=== PATIENT | male | born 1940 | race Caucasian/White ===

== ENCOUNTER 2017-10-13 05:41 | Outpatient (CLI) | payer MEDICARE ==
[~2017-10-13] VITALS: Ht 177.8 cm; Wt 104.3 kg
== END 2017-10-13 12:31 ==
LOC: PREOP 05:41
PROVIDERS: ATTEND Otolaryngology Otolaryngology/Facial Plastic Surgery
DX: Z01.818 Encounter for other preprocedural examination (principal); J32.8 Other chronic sinusitis; J33.9 Nasal polyp, unspecified

== ENCOUNTER 2017-10-16 07:23 | Day surgery (SDC) | payer MEDICARE, OTHER ==
[~2017-10-16] VITALS: Ht 177.8 cm; Wt 104.3 kg
--- OUTSIDE RECORDS SUMMARY | 2017-10-16 07:28 | XMS REPORT ---
Author Author Olga Cárdenas [facility] Address [address] [place], [place] [id number] Care Team Providers Care Dock Operator Name Role Phone RayshawnannaleeOlga rodriguez PCP [phone] Olga Cárdenas PreferredProvider [phone] Allergies and Adverse Reactions Name Reaction Notes Tape NO KNOWN DRUG ALLERGIES Plan of Treatment Not available. Medications Active Name Start Date Estimated Completion Date SIG Comments no med Name Start Date Expiration Date SIG Comments Zithromax 250 mg oral tablet 03/11/2017 03/16/2017 take 2 tablets (500 mg) by oral route once daily for 1 day then 1 tablet (250 mg) by oral route once daily for 4 days Discontinued Name Start Date Discontinued Date SIG Comments diphenhydramine HCl oral tablet 25 mg 12/13/2014 12/01/2016 take 1 tablet (25 mg) by oral route every 6 hours as needed for itching triamcinolone acetonide topical cream 0.1 % 12/13/2014 12/01/2016 apply a thin layer to the affected area(s) by topical route 2 times per day until rash resolved loratadine oral tablet 10 mg 12/13/2014 12/01/2016 take 1 tablet (10 mg) by oral route once daily for 14 days or until rash resolves Problem List Description Status Onset Hyperlipidemia Active stroke Active Vital Signs Date Time BP-Sys(mm[Hg] BP-Ligia(mm[Hg]) HR(bpm) RR(rpm) Temp WT HT HC BMI BSA BMI Percentile O2 Sat(%) 03/11/2017 9:09:00 AM 146 mmHg 82 mmHg 82 bpm 18 rpm 97.6 F 226.125 lbs 70 in 32.45 kg/m2 2.25 m2 96 % 02/18/2017 1:03:00 PM 128 mmHg 78 mmHg 72 bpm 18 rpm 97.6 F 234 lbs 70 in 33.5752 kg/m 2.2896 m 98 % 02/11/2017 2:10:00 PM 138 mmHg 84 mmHg 86 bpm 20 rpm 97.6 F 233.312 lbs 70 in 33.48 kg/m2 2.29 m2 98 % 12/13/2014 2:57:00 PM 130 mmHg 80 mmHg 89 bpm 20 rpm 97.3 F 235 lbs 70 in 33.7186 kg/m 2.2945 m 98 % 09/28/2014 4:23:00 PM 145 mmHg 85 mmHg 79 bpm 18 rpm 97.5 F 234 lbs 70 in 33.58 kg/m2 2.29 m2 98 % 07/28/2012 1:45:00 PM 138 mmHg 80 mmHg 80 bpm 18 rpm 97.2 F 228 lbs 70 in 32.7143 kg/m 2.26 m 99 % Social History Name Description Comments Alcohol Never Caffeine Current every day Tobacco Former smoker quit 1998 History of Procedures Date Ordered Description Order Status 03/11/2017 12:00 AM THER/PROPH/DIAG INJ SC/IM Reviewed 03/11/2017 12:00 AM Depo-Medrol 40mg Injection Reviewed 03/11/2017 12:00 AM Decadron 4mg Injection Reviewed 02/11/2017 12:00 AM REMOVE IMPACTED EAR WAX UNI Reviewed 02/18/2017 12:00 AM TRIM NAIL(S) ANY NUMBER Reviewed 07/28/2012 12:00 AM DESTRUCT PREMALG LESION Reviewed 09/21/2014 12:00 AM INFLUENZA VAC 4 VALENT PRSRV FREE 3 YRS PLUS IM Reviewed 09/28/2014 12:00 AM METABOLIC PANEL TOTAL CA Reviewed 09/28/2014 12:00 AM COMPLETE CBC W/AUTO DIFF WBC Reviewed 09/28/2014 12:00 AM LIPID PANEL Reviewed 12/13/2014 12:00 AM THER/PROPH/DIAG INJ SC/IM Reviewed 12/13/2014 12:00 AM Depo-Medrol, Per 80 Mg [facility]#5465-7517-13 Reviewed 12/13/2014 12:00 AM Decadron, Per 1 Mg [facility]# [address]-50 Reviewed Results Summary Not available. History Of Immunizations Name Date Admin Mfg Name Mfg Code Trade Name Lot# Route Inj Vis Given Vis Pub CVX Influenza 09/21/2014 Not Entered NE Not Entered [id number] Not Entered Not Entered 09/21/2014 07/11/2014 141 History of Past Illness Name Date of Onset Comments Hyperlipidemia stroke Common Wart Jul 28 2012 1:50PM Flu Vaccine Sep 25 2014 10:04AM Hypertension Sep 28 2014 4:30PM Hyperlipidemia Sep 28 2014 4:30PM stroke Sep 28 2014 4:30PM Allergic dermatitis Dec 13 2014 2:59PM Overgrown toenails Feb 18 2017 1:09PM Cough Mar 11 2017 9:11AM Reactive airway disease that is not asthma Mar 11 2017 9:11AM Purulent rhinitis Mar 11 2017 9:11AM Bilateral impacted cerumen Feb 11 2017 2:11PM Payers Insurance Name Company Name Plan Name Plan Number Policy Number Policy Group Number Start Date Medicare Part A Medicare Part A [id number] [facility] refunds [id number] Wednesday, 2000 Mail Handlers Benefit Becki Mail Handlers Benefit Becki [id number] Thursday, 2014 Medicare Part A Medicare - Lab/Xray [id number] N/A Medicare Part B Medicare Of [place] [id number] N/A History of Encounters Visit Date Visit Type Provider 03/11/2017 Office visit Olga Cárdenas POWDER MIXER 02/18/2017 Office visit Olga Cárdenas POWDER MIXER 02/11/2017 Office visit Olga Cárdenas POWDER MIXER 12/13/2014 Office visit 12/13/2014 Office visit Allison Ambrocio POWDER MIXER 09/28/2014 Office visit Rosa M Maguire MD 09/21/2014 Nurse visit Rosa M Maguire MD 07/28/2012 Procedures Fernando Marcos MD 11/25/2010 [facility] Pita May MD
--- OUTSIDE RECORDS SUMMARY | 2017-10-16 07:28 | XMS REPORT ---
Author Author Olga Cárdenas [facility] Address [address] [place], [place] [address] Care Team Providers Care It Data Architect Name Role Phone RayshawnrishiOlga magallon PCP [phone] Olga Cárdenas PreferredProvider [phone] Allergies and Adverse Reactions Name Reaction Notes Tape NO KNOWN DRUG ALLERGIES Plan of Treatment Not available. Medications Active Name Start Date Estimated Completion Date SIG Comments no med Namenda 10 mg oral tablet 06/11/2017 07/11/2017 take 1 tablet (10 mg) by oral route daily Name Start Date Expiration Date SIG Comments [...] HC BMI BSA BMI Percentile O2 Sat(%) 06/11/2017 3:58:00 PM 116 mmHg 78 mmHg 78 bpm 18 rpm 97.6 F 229.375 lbs 70 in 32.91 kg/m2 2.27 m2 96 % 03/11/2017 9:09:00 AM 146 mmHg 82 mmHg 82 bpm 18 rpm 97.6 F 226.125 lbs 70 in 32.4452 kg/m 2.2507 m 96 % 02/18/2017 1:03:00 PM 128 mmHg 78 mmHg 72 bpm 18 rpm 97.6 F 234 lbs 70 in 33.58 kg/m2 2.29 m2 98 % 02/11/2017 2:10:00 PM 138 mmHg 84 mmHg 86 bpm 20 rpm 97.6 F 233.312 lbs 70 in 33.4765 kg/m 2.2862 m 98 % 12/13/2014 2:57:00 PM 130 mmHg 80 mmHg 89 bpm 20 rpm 97.3 F 235 lbs 70 in 33.72 kg/m2 2.29 m2 98 % 09/28/2014 4:23:00 PM 145 mmHg 85 mmHg 79 bpm 18 rpm 97.5 F 234 lbs 70 in 33.5752 kg/m 2.2896 m 98 % 07/28/2012 1:45:00 PM 138 mmHg 80 mmHg 80 bpm 18 rpm 97.2 F 228 lbs 70 in 32.71 kg/m2 2.26 m2 99 % Social History Name Description Comments Alcohol Never Caffeine Current every day Tobacco Former smoker quit 1999 History of Procedures Date Ordered Description Order Status 03/11/2017 12:00 AM THER/PROPH/DIAG INJ SC/IM Reviewed 03/11/2017 12:00 AM Depo-Medrol 40mg Injection Reviewed 03/11/2017 12:00 AM Decadron 4mg Injection Reviewed 02/11/2017 12:00 AM REMOVE IMPACTED EAR WAX UNI Reviewed 02/18/2017 12:00 AM TRIM NAIL(S) ANY NUMBER Reviewed 06/17/2017 12:00 AM MRI BRAIN STEM W/DYE Reviewed 06/17/2017 12:00 AM MR ANGIOGRAPHY HEAD W/DYE Reviewed 06/11/2017 12:00 AM COMPLETE CBC W/AUTO DIFF WBC Reviewed 06/11/2017 12:00 AM COMPREHEN METABOLIC PANEL Reviewed 06/11/2017 12:00 AM ASSAY THYROID STIM HORMONE Reviewed 06/11/2017 12:00 AM ASSAY OF FREE THYROXINE Reviewed 06/11/2017 12:[address] HEAD/BRAIN W/DYE Reviewed 06/11/2017 12:00 AM ASSAY OF MAGNESIUM Reviewed 06/11/2017 12:00 AM ROUTINE VENIPUNCTURE Reviewed 06/11/2017 12:00 AM ASSAY TRIIODOTHYRONINE (T3) Reviewed 07/28/2012 12:00 AM DESTRUCT PREMALG LESION Reviewed 09/21/2014 12:00 AM INFLUENZA VAC 4 VALENT PRSRV FREE 3 YRS PLUS IM Reviewed 09/28/2014 12:00 AM METABOLIC PANEL TOTAL CA Reviewed 09/28/2014 12:00 AM COMPLETE CBC W/AUTO DIFF WBC Reviewed 09/28/2014 12:00 AM LIPID PANEL Reviewed 12/13/2014 12:00 AM THER/PROPH/DIAG INJ SC/IM Reviewed 12/13/2014 12:00 AM Depo-Medrol, Per 80 Mg [facility]#1531-0188-04 Reviewed 12/13/2014 12:00 AM Decadron, Per 1 Mg [facility]# [address]-59 Reviewed Results Summary Date and Description Results 06/11/2017 5:43 PM T3 TOTAL 95.0 ng/dLFREE T4 0.99 TSH 1.790 uIU/mLMAGNESIUM 2.10 mg/dLGLUCOSE 142.0 mg/dLSODIUM 138.0 mmol/LPOTASSIUM 3.90 mmol/LCHLORIDE 103.0 mmol/LCO2 24.0 mmol/LBUN 16.0 mg/dLCREATININE 0.90 mg/dLSGOT/AST 15.0 IU/ LSGPT/ALT 12.0 IU/LALK PHOS 112.0 IU/LTOTAL PROTEIN 7.10 g/dLALBUMIN 3.90 g/ dLTOTAL BILI 0.60 mg/dLCALCIUM 9.0 mg/dLAGE 76 GFR NonAA 82 GFR AA 99 eGFR >60 mL/min/1.73meGFR AA* >60 WBC 8.8 RBC 4.60 HGB 14.70 g/dLHCT 43.50 %MCV 95.0 fLMCH 32.0 pgMCHC 33.80 g/dLRDW SD 46 RDW CV 13.20 %MPV 9.50 fLPLT 292 NRBC# 0.00 NRBC% 0.0 %NEUT 58.20 %%LYMP 30.10 %%MONO 8.20 %%EOS 2.70 %%BASO 0.60 %# NEUT 5.12 #LYMP 2.65 #MONO 0.72 #EOS 0.24 #BASO 0.05 MANUAL DIFF NOT IND History Of Immunizations Name Date Admin Mfg Name Mfg Code Trade Name Lot# Route Inj Vis Given Vis Pub CVX Influenza 09/21/2014 Not Entered NE Not Entered [email or web address] Not Entered Not Entered 09/21/2014 07/11/2014 141 [...] Bilateral impacted cerumen Feb 11 2017 2:11PM Fatigue, unspecified type Jun 11 2017 4:01PM Confusion Jun 11 2017 4:01PM Memory loss Jun 11 2017 4:01PM Unstable gait Jun 11 2017 4:01PM Unspecified fall, subsequent encounter Jun 11 2017 4:01PM Abnormal CT scan, head Jun 17 2017 3:52PM Acute confusion Jun 17 2017 3:52PM Amnesia memory loss Jun 17 2017 3:52PM Unstable gait Jun 17 2017 3:52PM Payers Insurance Name Company Name Plan Name Plan Number Policy Number Policy Group Number Start Date Medicare Part A Medicare Part A [id number] N/A [employer] Benefit Becki [employer] Hand[employer] Benefit Becki [id number] Thursday, 2014 [facility] refunds [id number] Wednesday, 2000 Medicare Part B Medicare Of [place] [id number] N/A Medicare Part A Medicare - Lab/Xray [id number] N/A History of Encounters Visit Date Visit Type Provider 06/11/2017 Office visit Olga Cárdenas PRESCHOOL TEACHER AIDE 03/11/2017 Office visit Olga Cárdenas PRESCHOOL TEACHER AIDE 02/18/2017 Office visit Olga Cárdenas PRESCHOOL TEACHER AIDE 02/11/2017 Office visit Olga Cárdenas PRESCHOOL TEACHER AIDE 12/13/2014 Office visit 12/13/2014 Office visit Allison Ambrocio PRESCHOOL TEACHER AIDE 09/28/2014 Office visit Rosa M Maguire MD 09/21/2014 Nurse visit Rosa M Maguire MD 07/28/2012 Procedures Fernando Marcos MD 11/25/2010 [facility] Reina May MD
--- OUTSIDE RECORDS SUMMARY | 2017-10-16 07:28 | XMS REPORT ---
Author Author Olga Cárdenas [facility] Address [address] [place], [place] [phone] Care Team Providers Care Staff Genetic Counselor Name Role Phone RayshawnannaleeOlga rodriguez PCP [phone] Olga Cárdenas PreferredProvider [phone] Allergies and Adverse Reactions Name Reaction Notes Tape NO KNOWN DRUG ALLERGIES Plan of Treatment Not available. Medications Active Name Start Date Estimated Completion Date SIG Comments no med Zithromax 250 mg oral tablet 03/11/2017 03/16/2017 [...] of Procedures Date Ordered Description Order Status 02/11/2017 12:00 AM REMOVE IMPACTED EAR WAX UNI Reviewed 02/18/2017 12:00 AM TRIM NAIL(S) ANY NUMBER Reviewed 03/11/2017 12:00 AM THER/PROPH/DIAG INJ SC/IM Reviewed 03/11/2017 12:00 AM Depo-Medrol 40mg Injection Reviewed 03/11/2017 12:00 AM Decadron 4mg Injection Reviewed 07/28/2012 12:00 AM DESTRUCT PREMALG LESION Reviewed 09/21/2014 12:00 AM INFLUENZA VAC 4 VALENT PRSRV FREE 3 YRS PLUS IM Reviewed 09/28/2014 12:00 AM METABOLIC PANEL TOTAL CA Reviewed 09/28/2014 12:00 AM COMPLETE CBC W/AUTO DIFF WBC Reviewed 09/28/2014 12:00 AM LIPID PANEL Reviewed 12/13/2014 12:00 AM THER/PROPH/DIAG INJ SC/IM Reviewed 12/13/2014 12:00 AM Depo-Medrol, Per 80 Mg [facility]#6844-6908-73 Reviewed 12/13/2014 12:00 AM Decadron, Per 1 Mg [facility]# [address]-41 Reviewed Results Summary Not available. History Of Immunizations Name Date Admin Mfg Name Mfg Code Trade Name Lot# Route Inj Vis Given Vis Pub CVX Influenza 09/21/2014 Not Entered NE Not Entered [id number] Not Entered Not Entered 09/21/2014 07/11/2014 141 [...] 9:11AM Purulent rhinitis Mar 11 2017 9:11AM Payers Insurance Name Company Name Plan Name Plan Number Policy Number Policy Group Number Start Date Medicare Part A Medicare Part A [id number] N/A [facility] refunds [id number] Wednesday, 2000 Mail Handlers Benefit Becki Mail Hand[employer] Benefit Becki [id number] Thursday, 2014 Medicare Part A Medicare - Lab/Xray [id number] N/A Medicare Part B Medicare Of [place] [id number] N/A History of Encounters Visit Date Visit Type Provider 03/11/2017 Office visit Olga Cárdenas CHILD NURSE 02/18/2017 Office visit Olga Cárdenas CHILD NURSE 02/11/2017 Office visit Olga Cárdenas CHILD NURSE 12/13/2014 Office visit 12/13/2014 Office visit Allison Ambrocio CHILD NURSE 09/28/2014 Office visit Rosa M Maguire MD 09/21/2014 Nurse visit Rosa M Maguire MD 07/28/2012 Procedures Fernando Marcos MD 11/25/2010 [facility] Pita May MD
--- OUTSIDE RECORDS SUMMARY | 2017-10-16 07:28 | XMS REPORT ---
Author Author Olga Cárdenas [facility] Address [address] [place], [place] [address] Care Team Providers Care Office Executive Name Role Phone RayshawnannaleeOlga rodriguez PCP [phone] Olga Cárdenas PreferredProvider [phone] Allergies and Adverse Reactions Name Reaction Notes [...] of Procedures Date Ordered Description Order Status 02/18/2017 12:00 AM TRIM NAIL(S) ANY NUMBER Reviewed 03/11/2017 12:00 AM THER/PROPH/DIAG INJ SC/IM Reviewed 03/11/2017 12:00 AM Depo-Medrol 40mg Injection Reviewed 03/11/2017 12:00 AM Decadron 4mg Injection Reviewed 02/11/2017 12:00 AM REMOVE IMPACTED EAR WAX UNI Reviewed 07/28/2012 12:00 AM DESTRUCT PREMALG LESION Reviewed 09/21/2014 12:00 AM INFLUENZA VAC 4 VALENT PRSRV FREE 3 YRS PLUS IM Reviewed 09/28/2014 12:00 AM METABOLIC PANEL TOTAL CA Reviewed 09/28/2014 12:00 AM COMPLETE CBC W/AUTO DIFF WBC Reviewed 09/28/2014 12:00 AM LIPID PANEL Reviewed 12/13/2014 12:00 AM THER/PROPH/DIAG INJ SC/IM Reviewed 12/13/2014 12:00 AM Depo-Medrol, Per 80 Mg [facility]#7010-2555-55 Reviewed 12/13/2014 12:00 AM Decadron, Per 1 Mg [facility]# [address]-36 Reviewed Results Summary Not available. History Of Immunizations Name Date Admin Mfg Name Mfg Code Trade Name Lot# Route Inj Vis Given Vis Pub CVX Influenza 09/21/2014 Not Entered NE Not Entered [id number] Not Entered Not Entered 09/21/2014 07/11/2014 141 [...] Date Medicare Part A Medicare Part A [id number] N/A [facility] refunds [id number] Wednesday, 2000 Mail Handlers Benefit Becki Mail Handlers Benefit Becki [id number] Thursday, 2014 Medicare Part A Medicare - Lab/Xray [id number] N/A Medicare Part B Medicare Of [place] [id number] N/A History of Encounters Visit Date Visit Type Provider 03/11/2017 Office visit Olga Cárdenas PHARMACY TECHNOLOGY INSTRUCTOR 02/18/2017 Office visit Olga Cárdenas PHARMACY TECHNOLOGY INSTRUCTOR 02/11/2017 Office visit Olga Cárdenas PHARMACY TECHNOLOGY INSTRUCTOR 12/13/2014 Office visit 12/13/2014 Office visit Allison Ambrocio PHARMACY TECHNOLOGY INSTRUCTOR 09/28/2014 Office visit Rosa M Maguire MD 09/21/2014 Nurse visit Rosa M Maguire MD 07/28/2012 Procedures Fernando Marcos MD 11/25/2010 [facility] Pita May MD
--- OUTSIDE RECORDS SUMMARY | 2017-10-16 07:29 | XMS REPORT ---
Author Author Olga Cárdenas [facility] Address [address] [place], [place] [address] Care Team Providers Care Pole Shaver Name Role Phone Olga Cárdenas PCP [phone] Olga Cárdenas PreferredProvider [phone] Allergies and Adverse Reactions Name Reaction Notes Tape NO KNOWN DRUG ALLERGIES Plan of Treatment Planned Activity Comments Planned Date Planned Time Plan/Goal MRI BRAIN INC STEM W/CONTRAST 06/17/2017 12:00 AM MRA HEAD W/CONTRAST 06/17/2017 12:00 AM Medications Active Name Start Date Estimated Completion [...] 12:00 AM TRIM NAIL(S) ANY NUMBER Reviewed 06/11/2017 12:00 AM COMPLETE CBC W/AUTO [...] 12/13/2014 12:00 AM Depo-Medrol, Per 80 Mg [facility]#8477-2970-47 Reviewed 12/13/2014 12:00 AM Decadron, Per 1 Mg [facility]# [address]-89 Reviewed Results Summary Date and Description Results [...] Influenza 09/21/2014 Not Entered NE Not Entered [id number] Not Entered Not Entered 09/21/2014 07/11/2014 141 [...] Date Medicare Part A Medicare Part A [id number] N/A [facility]- refunds [id number] Wednesday, 2000 Mail Handlers Benefit Becki Mail Handlers Benefit Becki [id number] Thursday, 2014 Medicare Part A Medicare - Lab/Xray [id number] N/A Medicare Part B Medicare Of [place] [id number] N/A History of Encounters Visit Date Visit Type Provider 06/11/2017 Office visit Olga Cárdenas BOAT ENGINES INSTALLER 03/11/2017 Office visit Olga Cárdenas BOAT ENGINES INSTALLER 02/18/2017 Office visit Olga Cárdenas BOAT ENGINES INSTALLER 02/11/2017 Office visit Olga Cárdenas BOAT ENGINES INSTALLER 12/13/2014 Office visit 12/13/2014 Office visit Allison Ambrocio BOAT ENGINES INSTALLER 09/28/2014 Office visit Rosa M Maguire MD 09/21/2014 Nurse visit Rosa M Maguire MD 07/28/2012 Procedures Fernando Marcos MD 11/25/2010 [facility] Pita May MD
--- OUTSIDE RECORDS SUMMARY | 2017-10-16 07:29 | XMS REPORT | Continuity of Care Document ---
Author Author [facility] Address Unknown Phone Unavailable Allergies Medications Problems Procedures Results Encounters ACCT No. Visit Date/Time Discharge Status Pt. Type Provider Facility Loc./Unit Complaint [id number] 09/23/2017 14:49:47 09/23/2017 23: 59:59 CLS Outpatient Hannah Cárdenas [id number] 06/11/2017 16:55:32 06/11/2017 23: 59:59 DORETHA Outpatient Hannah Cárdenas [id number] 03/12/2017 09:34:51 03/12/2017 23: 59:59 CLS Outpatient Hannah Cárdenas [id number] 02/18/2017 13:59:37 02/18/2017 23: 59:59 CLS Outpatient Hannah Cárdenas [id number] 02/11/2017 15:06:40 02/11/2017 23: 59:59 CLS Outpatient Hannah Cárdenas [id number] 12/13/2014 15:45:15 12/13/2014 23: 59:59 CLS Outpatient Allison Ambrocio [id number] 09/28/2014 17:15:39 09/28/2014 23: 59:59 CLS Outpatient Rosa M Maguire [id number] 09/21/2014 10:35:03 09/21/2014 23: 59:59 CLS Outpatient Rosa M Maguire
[2017-10-16] MEDS ORDERED: BSS 15 ML ONE (08:30)
[2017-10-16] MEDS ORDERED: PHENYLEPHRINE 0.5% NASAL SPR (NEO-SYNEPHRINE) REG ONE (08:30)
[2017-10-16] MEDS ORDERED: LIDOCAINE/EPI 1%-1:200,000 (XYLOCAINE) 10 ML VIAL ONE ×2 (08:30→09:42)
[2017-10-16] MEDS ORDERED: COCAINE HCL 4% 2 ML SYR ONE (08:31)
--- NOTE | 2017-10-16 08:32 | Progress Note-Pre Operative ---
Pre-Operative Progress Note H&P Reviewed The H&P was reviewed, patient examined and no changes noted. Date Seen by Provider: Oct 16, 2017 Time Seen by Provider: : Date H&P Reviewed: Oct 16, 2017 Time H&P Reviewed: : Pre-Operative Diagnosis: Bilat Chronic Sinusitis, Bilat Nasal Polyps, Bilat HYper of Inf Turbs TEREZA ALMEIDA MD Oct 16, 2017 8:32 am
[2017-10-16] MEDS ORDERED: proPOfol 200 MG/20 ML (DIPRIVAN) VIAL IV ONE (08:35)
[2017-10-16] MEDS ORDERED: ONDANSETRON 4 MG/2 ML (SDV) Z0FRAN ONE (08:35)
[2017-10-16] MEDS ORDERED: MIDAZOLAM 2 MG/2 ML (VERSED) VIAL ONE (08:35)
[2017-10-16] MEDS ORDERED: SEVOFLURANE (ULTANE) 15 ML INHAL SOLN ONE ×7 (08:35→11:01)
[2017-10-16] MEDS ORDERED: fentaNYL INJECTION 100 MCG/2 ML AMP ONE (08:35)
[2017-10-16] MEDS ORDERED: LIDOCAINE PF 2% 5 ML (XYLOCAINE) VIAL ONE (08:35)
[2017-10-16] MEDS ORDERED: DEXAMETHASONE 10 MG/ML (DECADRON) 1 ML VIAL ONE (08:35)
[2017-10-16] MEDS ORDERED: HYDROCORTISONE 100 MG/2 ML (Solu-CORTEF) VIAL ONE (09:03)
[2017-10-16] MEDS ORDERED: AMPICILL/SULB 1.5 GM VIAL (UNASYN) ONE (09:03)
[2017-10-16] MEDS ORDERED: NS (IVPB) 50 ML ONE (09:04)
[2017-10-16] MEDS: LACTATED RINGERS 1,000 ML IV PRN ×2 (09:10→12:19)
[2017-10-16 09:22] VITALS: BP 163/94
[2017-10-16] MEDS ORDERED: AMPICILLIN/SULBACTAM 1.5 GM/NS 50 ML IVPB IV ONE ×2 (09:30)
[2017-10-16] MEDS ORDERED: HYDROCORTISONE 100 MG/2 ML (Solu-CORTEF) VIAL IV ONE (09:30)
[2017-10-16] MEDS ORDERED: ROCURONIUM 50 MG/5 ML (ZEMURON) VIAL IV ONE (11:09)
[2017-10-16] MEDS ORDERED: D5 1/2 NS W/KCL 20 MEQ/L 1,000 ML IV SCH (11:24)
--- NOTE | 2017-10-16 11:24 | Progress Note-Post Operative ---
Post-Operative Progess Note Surgeon (s)/Opal Miner (s) Surgeon TEREZA ALMEIDA MD Opal Miner n/a Pre-Operative Diagnosis Bilat Chronic Sinusitis, Bilat Nasal Polyps, Bilat HYper of Inf Turbs Post-Operative Diagnosis same Post-Op Procedure Note Date of Procedure: Oct 16, 2017 Name of Procedure Performed: Bilat ESS with REmoval of Nasal Polyps, Bilat PArtial REd of Inf Turbs Description & Findings Description and Findings: n/a Anesthesia Type get Estimated Blood Loss 125cc Packing none. Specimen(s) collected/removed bilat nasal polyps and sinus disease TEREZA ALMEIDA MD Oct 16, 2017 11:24 am
[2017-10-16] MEDS ORDERED: predniSONE 20 MG TAB PO ONE (11:30)
[2017-10-16] MEDS ORDERED: PROMETHAZINE INJ 25 MG/ML (PHENERGAN) AMP IVP PRN ×2 (11:30→11:45)
[2017-10-16] MEDS ORDERED: ACETAMINOPHEN 325 MG TABLET/CAPLET (TYLENOL) PO PRN (11:30)
[2017-10-16] MEDS ORDERED: HYDROcodone/APAP 5 MG/325 MG (LORTAB) TAB PO PRN (11:30)
[2017-10-16] MEDS ORDERED: LABETALOL HCL 20 MG/4 ML VIAL ONE (11:33)
[2017-10-16] MEDS ORDERED: MEPERIDINE (DEMEROL) INJ 50 MG/ML IVP PRN (11:45)
[2017-10-16] MEDS: morphine INJ 10 MG/ML 1ML (SYR OR VIAL) IVP PRN ×2 (11:45→11:53)
[2017-10-16] MEDS ORDERED: LABETALOL HCL 20 MG/4 ML VIAL IV ONE ×4 (11:45→12:15)
[2017-10-16] MEDS ORDERED: ONDANSETRON 4 MG/2 ML (SDV) Z0FRAN IVP PRN (11:45)
[2017-10-16] MEDS ORDERED: NEOSTIGMINE (BLOXIVERZ ) 1 MG/1ML 10 ML VIAL ONE (11:56)
[2017-10-16] MEDS ORDERED: GLYCOPYRROLATE 0.2 MG/ML (ROBINUL) 2 ML VIAL ONE (11:56)
[2017-10-16] MEDS ORDERED: hydrALAZINE (APESOLINE) 20 MG/ML VIAL ONE (12:26)
[2017-10-16] MEDS: hydrALAZINE (APESOLINE) 20 MG/ML VIAL IV PRN ×2 (12:36→12:46)
[2017-10-16 13:00] VITALS: BP 163/91
[2017-10-16 13:30] VITALS: BP 133/78
[2017-10-16] MEDS ORDERED: PRD20T PO (13:43)
[2017-10-16] MEDS ORDERED: HYDR-3812 PO (13:43)
[2017-10-16] MEDS ORDERED: AMOX250S5 PO (13:43)
[2017-10-16 14:00] VITALS: BP 143/82
[2017-10-16] MEDS ORDERED: predniSONE 20 MG TAB ONE (14:19)
[2017-10-16 14:30] VITALS: BP 128/67
== END 2017-10-16 14:30 | disposition home or self-care (01) ==
LOC: SDC 07:23
PROVIDERS: ATTEND Otolaryngology Otolaryngology/Facial Plastic Surgery
DX: J32.0 Chronic maxillary sinusitis (principal); J32.1 Chronic frontal sinusitis; J32.2 Chronic ethmoidal sinusitis; J32.3 Chronic sphenoidal sinusitis; J34.3 Hypertrophy of nasal turbinates; Z87.891 Personal history of nicotine dependence
CPT/HCPCS: 87081